=== PATIENT | male | born 1985 | race Caucasian/White ===

== ENCOUNTER 2022-02-01 11:38 | Emergency (ER) | payer SELFPAY ==
[2022-02-01 11:52] VITALS: BP 172/123; PULSE 84; RESP 20; TEMP 36.6; O2SAT 98; BMI 32.5
--- NOTE | 2022-02-01 12:06 | XR_ITS ---
WS: [id number] XR ankle RT min 3V* 68923 REASON FOR EXAM: R ankle pain FINDINGS: Diffuse soft tissue swelling around the ankle joint. Ankle joint spaces are intact and well preserved. No fracture identified. XR/XR ankle RT min 3V* [id number] IMPRESSION: Soft tissue swelling with no underlying fracture or dislocation identified.
--- NOTE | 2022-02-01 12:23 | XR_ITS ---
WS: [id number] XR foot RT min 3V* 31500 REASON FOR EXAM: R foot pain FINDINGS: There appears to be diffuse swelling of the foot. Joint spaces of the forefoot, midfoot, and hindfoot are intact. No fracture identified. XR/XR foot RT min 3V* [id number] IMPRESSION: Soft tissue swelling with no underlying fracture or dislocation identified.
[2022-02-01] MEDS: acetaminophen 500 mg Tablet PO (12:42)
[2022-02-01 12:46] VITALS: RESP 17; O2SAT 98
[2022-02-01] MEDS: morphine 4 mg/mL SDV 1 mL IM (12:46)
--- NOTE | 2022-02-01 13:22 | ED_ITS ---
HPI - General Adult General: Chief complaint: Extremity Injury, Lower Stated complaint: Right ankle pain Time Seen by Provider: 02/01/22 12:04 History of Present Illness: Patient is a 36-year-old male without any significant past medical history presents emergency room with right ankle and feet pain and swelling. Patient tells me that he was taking out the trash yesterday when he landed on his right ankle yesterday night at 7pm. Patient felt a crunch in that ankle. Since then, patient has had pain. Patient reports swelling of the ankle. Patient denies any other injuries. No other associated complaints today including nausea/vomiting, fever/chill, chest pain, shortness of breath, abdominal pain, dysuria/hematuria/polyuria, diarrhea/melena/hematochezia. Onset: yesterday night Duration:ongoing Location:home Severity:moderate Associated symptoms: Deny chest pain, dyspnea, nausea, rash, palpitations or vomiting Review of Systems Const: Denies: fever(s) or chills Eyes: Denies: change in vision ENMT: Denies: mouth pain Card: Denies: chest pain or palpitations Resp: Denies: dyspnea or non-productive cough GI: Denies: abdominal pain, nausea, vomiting or diarrhea : Denies: dysuria Musc: Reports: extremity pain (+R ankle and foot pain and swelling) Skin/Breast: Denies: rash or new lesions Neuro: Denies: weakness in extremities Psych: Reports: other (Normal mood) Jamey/Lymph: Denies: easy bruising Physical Exam Const: COMMON NORMALS: alert HENMT: COMMON NORMALS: atraumatic HEAD & SCALP: atraumatic MOUTH: moist mucous membranes not abnormal Eye: COMMON NORMALS: EOMs intact bilaterally and conjunctivae normal CONJUNCTIVA: Yes conjunctivae normal Neck/C-Spine: COMMON NORMALS: full ROM and supple Resp: COMMON NORMALS: normal respiratory effort and clear to auscultation bilaterally AUSCULTATION: clear to auscultation bilaterally Cardio: COMMON NORMALS: regular rate RATE: regular rate GI: COMMON NORMALS: Soft to palpation and non-tender PALPATION: Yes Soft to palpation Extremity: NARRATIVE EXTREMITY EXAM: + Right ankle swelling, decreased range of motion of ankle due to pain, 2+ DP/PT pulses on the right foot, sensations intact in the right foot, cap refill less than 3 seconds in right foot. No Lisfranc area tenderness palpation Neuro: SENSORIUM/ORIENTATION: Yes alert MOTOR EXAM: No Abnormal motor strength present and Other motor observations present (no focal motor deficits) Psych: COMMON NORMALS: speech normal SPEECH: Yes normal speech MOOD & AFFECT: Yes euthymic mood Course Vital Signs: Vital signs: Vital Signs Temperature 97.9 F 02/01/22 11:52 Pulse Rate 67 02/01/22 13:30 Respiratory Rate 18 02/01/22 13:30 Blood Pressure 159/87 02/01/22 13:30 Pulse Oximetry 99 02/01/22 13:30 Oxygen Delivery Me thod 02/01/22 13:30 MDM - General Adult Medical Decision Making Patient is a 36-year-old male without any significant past medical history presents emergency room with right ankle and feet pain and swelling. On physical exam, patient did have right ankle swelling decreased range of motion due to pain. Patient has bilateral ankle tenderness palpation and hindfoot tenderness palpation. X-ray did not show signs of focal findings. Patient's foot was placed in Teddy wrap. Patient was given crutches. Patient instructed to repeat x-ray in 1 week to ensure that there is no occult fracture that we missed today. X-ray did not show any signs of Lisfranc injury. Rx: Norflex, tylenol, lidocaine patch, and menthol PRN pain Disposition: Discharge. Patient counseled regarding diagnostic impression, treatment plan. Patient given ED strict return precautions to return for continuation, worsening, or development of new symptoms. Instructed to f/u w/ PCP regarding symptoms today. Patient verbalized understanding. Lab Data Radiology Impressions Ankle X-Ray 02/01/22 12:06 IMPRESSION: Soft tissue swelling with no underlying fracture or dislocation identified. Foot X-Ray 02/01/22 12:23 IMPRESSION: Soft tissue swelling with no underlying fracture or dislocation identified. Imaging Data Other Imaging: Radiologist's impression: [address] [place] [address] XRay Report Signed Patient: Arvind Morales Unit #: [id number] : 1985 Age/Sex: 36 / M ADM Date: 02/01/22 Loc: ER Room/Bed: Attending Dr: Ordering Provider/Ordering MD: Tracy Young MD Date of Service: 02/01/22 Procedure(s): XR foot RT min 3V* 60733 Accession Number(s): [id number] Report Number: [id number] WS: [id number] XR foot RT min 3V* 48984 REASON FOR EXAM: R foot pain FINDINGS: There appears to be diffuse swelling of the foot. Joint spaces of the forefoot, midfoot, and hindfoot are intact. No fracture identified. XR/XR foot RT min 3V* 62394 IMPRESSION: Soft tissue swelling with no underlying fracture or dislocation identified. ? ? Dictated By: Roque Arita Jr, MD Signed By: Roque Arita Jr, MD Signed Date/Time: 02/01/22 1419 DD/ [address] [address] XRay Report Signed Patient: Arvind Morales Unit #: [id number] : 1985 Age/Sex: 36 / M ADM Date: 02/01/22 Loc: ER Room/Bed: Attending Dr: Ordering Provider/Ordering MD: Tracy Young MD Date of Service: 02/01/22 Procedure(s): XR ankle RT min 3V* 57955 Accession Number(s): [id number] Report Number: [id number] WS: [email or web address] XR ankle RT min 3V* [id number] REASON FOR EXAM: R ankle pain FINDINGS: Diffuse soft tissue swelling around the ankle joint. Ankle joint spaces are intact and well preserved. No fracture identified. XR/XR ankle RT min 3V* 27770 IMPRESSION: Soft tissue swelling with no underlying fracture or dislocation identified. ? ? Dictated By: Roque Arita Jr, MD Signed By: Roque Arita Jr, MD Signed Date/Time: 02/01/22 1330 DD/ 1329 Discharge Plan Discharge Patient Disposition: Home Clinical Impression: Ankle pain, Foot pain Condition: Stable Prescriptions: New acetaminophen 500 mg tablet 500 mg PO Q6H PRN (Reason: pain) 5 Days Qty: 20 0RF lidocaine 5 % adhesive patch,medicated 1 patch topical DAILY PRN (Reason: pain) 30 Days Qty: 30 0RF Rx Instructions: leave on most painful area for up to 12 hrs orphenadrine citrate 100 mg tablet extended release 100 mg PO BID PRN (Reason: pain) 10 Days Qty: 20 0RF Biofreeze (menthol) 5 % gel 1 ea topical BID PRN (Reason: pain) 10 Days Qty: 1 0RF Discharge Orders: Discharge ED (Routine); Ordered 02/01/22 Ordered By: Tracy Young Discharge Diet: Advance as tolerated Discharge Activity: Increase activity as tolerated Patient Instructions: Pain Management Activity Restrictions/Additional Instructions: Come back if you have any new or concerning issues. Repeat your x-ray in 1 week to determine if there is any fractures that we missed today. Please use your crutches and Teddy wrap. Use ice warm compresses, and take the medicine as instructed for pain. Coding Level of Care Code ED Turret Lathe Tender for Mushtaq Fwd Exam Comprehensive
[2022-02-01 13:30] VITALS: BP 159/87; PULSE 67; RESP 18; O2SAT 99
== END 2022-02-01 14:56 | disposition home or self-care (01) ==
PROVIDERS: Emergency Provider Emergency Medicine
DX: M25.571 Pain in right ankle and joints of right foot (principal)
CPT/HCPCS: 73610; 73630; 96372; 99284; E0114; J2270